=== PATIENT | male | born 1990 | race Caucasian/White ===

== ENCOUNTER → 2017-07-21 | Outpatient (REF) | payer BC ==
[2017-07-21 18:26] LABS: PLATELET COUNT, AUTOMATED 175 K/uL (150-450)
== END ==
PROVIDERS: ATTEND Physician Assistant Medical
DX: R10.9 Unspecified abdominal pain (principal); R19.7 Diarrhea, unspecified; R11.0 Nausea
CPT/HCPCS: 82040; 82247; 82310; 82374; 82435; 82565; 82947; 83690; 84075; 84132; 84155; 84295; 84450; 84460; 84520; 85025

== ENCOUNTER 2018-07-22 18:52 | Emergency (ER) | payer BC ==
--- NOTE | 2018-07-22 18:56 | ER Report ---
History and Physical Time Seen By MD: 18:56 HPI/ROS CHIEF COMPLAINT: Diarrhea HISTORY OF PRESENT ILLNESS: This is a 28-year-old male who presents to the emergency department for diarrhea. Patient states that about 5 days ago he began having some abdominal cramping, then about 3-4 days ago he began having some diarrhea progressively getting worse. Has taken Imodium at home with no significant relief. Has been having abdominal cramping. Did have some chills initially however that has since then resolved. He is concerned that he has influenza. His states she had nausea and vomiting earlier this week, no diarrhea. No recent travel or exposure to unusual foods. There son was sick last week with croup. Denies nausea or vomiting. No chest pain or shortness of breath. No headaches or rashes. REVIEW OF SYSTEMS: Constitutional: No fever, no chills. Eyes: No discharge. ENT: No sore throat. Cardiovascular: No chest pain, no palpitations. Respiratory: No cough, no shortness of breath. Gastrointestinal: As above. Genitourinary: No hematuria. Musculoskeletal: No back pain. Skin: No rashes. Neurological: No headache. Allergies: Coded Allergies: No Known Drug Allergies (Unverified , 07/22/18) Home Meds Active Scripts Ciprofloxacin 500 Mg Tab (CIPROFLOXACIN 500 MG TAB) 500 Mg Tablet, 500 MG PO Q12H, #10 TAB 0 Refills Prov:GALE GILLESPIE Arline [employer]- 07/22/18 Past Medical/Surgical History The patient has a past medical and surgical history of GERD, wears glasses, anxiety, depression, kidney stones, bilateral foot surgery as a child. Reviewed Nurses Notes: Yes Constitutional Vital Sign - Last 24 Hours 07/22/18 07/22/18 07/22/18 07/22/18 19:03 19:40 20:00 20:30 Temp 97.6 Pulse 85 Resp 17 B/P (MAP) 122/81 110/70 (83) 109/80 (90) 105/79 (88) Pulse Ox 91 O2 Delivery Room Air 07/22/18 07/22/18 07/22/18 07/22/18 20:35 20:51 21:00 21:05 Pulse ??? 92 86 B/P (MAP) 101/84 (90) Pulse Ox 94 93 07/22/18 07/22/18 07/22/18 21:30 21:35 21:40 Pulse 81 B/P (MAP) 100/79 (86) Pulse Ox 93 94 Physical Exam General Appearance: The patient is alert, has no immediate need for airway protection and no current signs of toxicity. Eyes: Pupils equal and round no injection. Respiratory: Chest is non tender, lungs are clear to auscultation. Cardiac: regular rate and rhythm Gastrointestinal: Abdomen is soft and non tender, no masses, hyperactive bowel sounds. Musculoskeletal: Neck: Neck is supple and non tender. Extremities have full range of motion and are non tender. Skin: No rashes or lesions. DIFFERENTIAL DIAGNOSIS: After history and physical exam differential diagnosis was considered for abdominal pain including but not limited to appendicitis, ch olecystitis, infectious diarrhea, gastritis and urinary tract infection. Medical Decision Making Data Points Laboratory Hematology Test 07/22/18 19:12 07/22/18 19:46 Influenza Virus Type A (PCR) Negative (NEGATIVE) Influenza Virus Type B (PCR) Negative (NEGATIVE) Stool Leukocytes, Qualitative Positive C. difficile Toxin B Gene (PCR) Negative Chemistry Test 07/22/18 19:12 07/22/18 19:46 Influenza Virus Type A (PCR) Negative (NEGATIVE) Influenza Virus Type B (PCR) Negative (NEGATIVE) Stool Leukocytes, Qualitative Positive C. difficile Toxin B Gene (PCR) Negative ED Course/Re-evaluation ED Course The patient was admitted to room. A history and physical were obtained. Differential diagnoses were considered. I offered an IV and basic blood work to the patient as well as a fluid bolus of a patient's declined. A stool specimen was collected positive leukocytes, negative C. difficile, negative influenza. I reviewed the results with the patient. The patient was reluctant to take any medications I did send him home with a prescription for Cipro, if the diarrhea is persistent over the next couple of days, he will start the antibiotic regimen. If however the diarrhea begins to slow, he will not take the antibiotics. Patient expressed understanding, was in agreement with this plan of care and discharged home. Decision to Disposition Date: Jul 22, 2018 Decision to Disposition Time: 21:58 Depart Departure Latest Vital Signs Vital Signs Date Time Temp Pulse Resp B/P (MAP) Pulse Ox O2 Delivery O2 Flow Rate FiO2 07/22/18 21:40 94 07/22/18 21:35 81 07/22/18 21:30 100/79 (86) 07/22/18 19:03 97.6 17 Room Air Impression: Primary Impression: Diarrhea Condition: Improved Disposition: HOME OR SELF-CARE New Scripts Ciprofloxacin 500 Mg Tab (CIPROFLOXACIN 500 MG TAB) 500 Mg Tablet 500 MG PO Q12H, #10 TAB 0 Refills Prov: GALE GILLESPIE 07/22/18 Patient Instructions: Acute Diarrhea (ED), Clear Liquid Diet (ED), Nutrition Tips for Relief of Diarrhea (ED) Additional Instructions: If no slowing of diarrhea in the next 2 days, start the antibiotics. Be sure to drink plenty of fluids, alternate water with drinks such as gatorade. Take probiotics as we discussed. Clear liquid diet for the next 24 hours. Drink plenty of fluids. Return to the ED for any other concerns or worsening symptoms. Problem Qualifiers Primary Impression: Diarrhea Diarrhea type: presumed infectious Qualified Codes: R19.7 - Diarrhea, unspecified GALE GILLESPIE-JERED Jul 22, 2018 18:56
[2018-07-22 21:30] VITALS: BP 100/79
[2018-07-22] MEDS ORDERED: CIPR-214 PO (21:59)
== END 2018-07-22 22:13 | disposition home or self-care (01) ==
LOC: ER 19:15
DX: R19.7 Diarrhea, unspecified (principal)
CPT/HCPCS: 83630; 87045; 87177; 87493; 87502; 99282